=== PATIENT | male | born 1985 ===

== ENCOUNTER 2017-03-02 10:08 | Emergency (ER) | payer BC ==
--- NOTE | 2017-03-02 11:34 | UC ---
Tesha Howard Salem, scribed for Jillian Royal MD on 03/02/17 at 1110 . Eye Complaint HPI - HPI Summary HPI Summary: Patient is a 31 y/o M who presents to the with a right eye vision complaint for the past two weeks. He reports brief flashes of light (bright white light that fox out) and floaters in right eye that have worsened over the past two weeks. He denies a headache, ear pain, double vision, problems with vision acuity, or dizziness. Pt states he has been nearsighted since grade school. Patients medication reviewed this visit. - History of Current Complaint Chief Complaint: UCEye Stated Complaint: EYE COMPLAINT Time Seen by Provider: 03/02/17 11:01 Hx Obtained From: Patient Onset/Duration: Gradual Onset, Lasting Weeks, Still Present Timing: Seconds Severity Initially: Moderate Severity Currently: Moderate Aggravating Factor(s): Nothing Alleviating Factor(s): Nothing Associated Signs And Symptoms: Positive: Negative. Negative: Vision Impairment Bilateral - Risk Factors Penetrating Injury Risk Factor: Negative Globe Rupture Risk Factors: Negative Acute Glaucoma Risk Factors: Negative Optic Artery Occlusion Risk Factors: Negative - Allergies/Home Medications Allergies/Adverse Reactions: Allergies Allergy/AdvReac Type Severity Reaction Status Date / Time No Known Allergies Allergy Verified 03/02/17 11:18 Home Medications: Home Medications NK [No Home Medications Reported] 03/02/17 [History Confirmed 03/02/17] PMH/Surg Hx/FS Hx/Imm Hx Previously Healthy: Yes - Surgical History Surgical History: Yes Other Surgical History: Hernia repair x 2 - Family History Known Family History: Positive: Other - Cornea transplants father. - Social History Occupation: Employed Full-time - sculptor Alcohol Use: None Substance Use Type: None Smoking Status (MU): Never Smoked Tobacco Have You Smoked in the Last Year: No Review of Systems Constitutional: Negative Skin: Negative Eyes: Other - Brief flashes of light and floaters in right eye. No double vision or problems with vision acuity. ENT: Negative Respiratory: Negative Cardiovascular: Negative Gastrointestinal: Negative Genitourinary: Negative Motor: Negative Neurovascular: Negative Musculoskeletal: Negative Neurological: Negative - no headaches. Psychological: Negative All Other Systems Reviewed And Are Negative: Yes Physical Exam Triage Information Reviewed: Yes Appearance: Well-Appearing, No Pain Distress Vital Signs: Initial Vital Signs Temp 98.2 F 03/02/17 10:30 Pulse 63 03/02/17 10:30 Resp 16 03/02/17 10:30 BP 102/62 03/02/17 10:30 Pulse Ox 100 03/02/17 10:30 Vital Signs Reviewed: Yes Eyes: Positive: Conjunctiva Clear, Other: - KELLIE, normal eye movements, normal visual field by confrontation. Acuity is good. ENT Exam: Normal ENT: Positive: Pharynx normal, TMs normal Dental Exam: Normal Neck exam: Normal Respiratory: Positive: Lungs clear Cardiovascular: Positive: RRR, No Murmur Eye Complaint Course/Dx - Course Course Of Treatment: referred for eye evaluation; advised symptoms most consistent with vitreous detachment. - Differential Dx/Diagnosis Provider Diagnoses: floaters, possible vitreous detachment - Physician Notification/Consults Discussed Patient Care With: Dr. Morse office (line servicer) @ [id number]. Discussed case. Discharge - Discharge Plan Condition: Stable Disposition: HOME Patient Education Materials: Visual Floaters (ED) Referrals: [facility] REFERRAL [Outside] No Primary Care Phys,NOPCP [Primary Care Provider] - Anshul Rhodes MD [Medical Doctor] - Additional Instructions: As discussed, your findings and history suggest a vitreous detachment, but that should be confirmed with opthalmology. You can have an assessment here at Dr. Rhodes's office, or return to the the [facility]. Should you need a change of referral for insurance purposes, please call back to make that change. The documentation as recorded by the Tesha joyner Salem accurately reflects the service I personally performed and the decisions made by me, Jillian Royal MD.
== END 2017-03-02 11:38 | disposition home or self-care (01) ==
LOC: UCEAST 10:08
DX: H43.391 Other vitreous opacities, right eye (principal)
CPT/HCPCS: 99201; G0463